=== PATIENT | female | born 1955 | race Caucasian/White ===

== ENCOUNTER 2017-12-14 13:38 | Emergency (ER) | payer BC ==
[2017-12-14 14:01] VITALS: BP 107/54
[2017-12-14] MEDS ORDERED: Ibuprofen TAB* 400 MG PO ONE (14:12)
--- NOTE | 2017-12-14 14:26 | RAD ---
Indication: Elbow injury. 4 views of left elbow demonstrates fracture through the olecranon process with distraction of the fracture fragments and marked soft tissue swelling at the elbow. IMPRESSION: Comminuted fracture through the olecranon with distraction of the fracture fragments.
--- NOTE | 2017-12-14 14:36 | UC ---
Upper Extremity HPI - HPI Summary HPI Summary: Complains of left elbow pain and swelling as/P mechanical fall today. Patient states he tripped and fell onto her left elbow on a concrete surface. Denies any loss of sensation or function distally. Denies head injury, any other pain or injury. Med hx = HTN, internal defib, chf, brain tumor. - History of Current Complaint Hx Obtained From: Patient Severity Initially: Moderate Severity Currently: Moderate Pain Intensity: 6 Pain Scale Used: 0-10 Numeric Character: Sharp, Aching, Throbbing Aggravating Factor(s): Movement Alleviating Factor(s): Nothing Associated Signs And Symptoms: Positive: Swelling. Negative: Weakness, Numbness /Tingling <Vishnu Pabon - Last Filed: 12/14/17 15:58> <Emily Cloud - Last Filed: 12/15/17 19:36> - History of Current Complaint Chief Complaint: UCUpperExtremity Stated Complaint: LEFT ELBOW INJURY Time Seen by Provider: 12/14/17 14:05 - Allergies/Home Medications Allergies/Adverse Reactions: Allergies Allergy/AdvReac Type Severity Reaction Status Date / Time No Known Allergies Allergy Verified 12/14/17 14:01 Home Medications: Home Medications PARoxetine HCL TAB* [Paxil TAB*] 40 mg DAILY 12/14/17 [History Confirmed ] PMH/Surg Hx/FS Hx/Imm Hx - Surgical History Surgical History: Yes Surgery Procedure, Year, and Place: removal of benign brain tumor 06/12/2015. defibrillator. Functional blepharoplasty - Family History Known Family History: Positive: Other - cancer - Social History Alcohol Use: Daily Alcohol Amount: glass of wine daily Substance Use Type: None Smoking Status (MU): Never Smoked Tobacco - Immunization History Most Recent Influenza Vaccination: NOT IN 2013 <Vishnu Pabon - Last Filed: 12/14/17 15:58> Review of Systems Constitutional: Negative Skin: Negative Eyes: Negative ENT: Negative Respiratory: Negative Cardiovascular: Negative Gastrointestinal: Negative Genitourinary: Negative Motor: Negative Neurovascular: Negative Musculoskeletal: Arthralgia, Decreased ROM, Edema Neurological: Negative Psychological: Negative Is Patient Immunocompromised?: No All Other Systems Reviewed And Are Negative: Yes <Vishnu Pabon - Last Filed: 12/14/17 15:58> Physical Exam - Summary Physical Exam Summary: Swelling to left elbow. Full extension intact. Pain with flexion past 90. No erythema, ecchymosis, lacerations or abrasions noted to left elbow. Full active flexion and extension intact at the left wrist and all left fingers without pain. Sensation intact on all fingers. Triage Information Reviewed: Yes Appearance: Well-Appearing Vital Signs: Initial Vital Signs Temp 99.2 F 12/14/17 13:55 Pulse 63 12/14/17 13:55 Resp 16 12/14/17 13:55 BP 107/54 12/14/17 13:55 Pulse Ox 100 12/14/17 13:55 Eyes: Positive: Conjunctiva Clear Neck exam: Normal Respiratory Exam: Normal Cardiovascular Exam: Normal Abdominal Exam: Normal Musculoskeletal Exam: Normal Neurological Exam: Normal Psychological Exam: Normal Skin Exam: Normal <Vishnu Pabon - Last Filed: 12/14/17 15:58> Vital Signs: Initial Vital Signs Temp 99.2 F 12/14/17 13:55 Pulse 63 12/14/17 13:55 Resp 16 12/14/17 13:55 BP 107/54 12/14/17 13:55 Pulse Ox 100 12/14/17 13:55 <Emily Cloud - Last Filed: 12/15/17 19:36> Upper Extremity Course/Dx - Course Course Of Treatment: Complains of left elbow pain and swelling as/P mechanical fall today. Patient states he tripped and fell onto her left elbow on a concrete surface. Denies any loss of sensation or function distally. Denies head injury, any other pain or injury. Med hx = HTN, internal defib, chf, brain tumor. Swelling to left elbow. Full extension intact. Pain with flexion past 90. No erythema, ecchymosis, lacerations or abrasions noted to left elbow. Full active flexion and extension intact at the left wrist and hand without pain. PMS intact distally. elbow xray: olecrannon fx with distraction of fragments. Posterior long-arm splint placed here. RX for hydrocodone 5mg x 8 tabs. Follow-up with Dr. Saleh orthopedics. - Differential Dx/Diagnosis Provider Diagnoses: olecrannon fracture <Vishnu Pabon - Last Filed: 12/14/17 15:58> Discharge - Sign-Out/Discharge Documenting (check all that apply): Discharge/Admit/Transfer - Billing Disposition and Condition Condition: STABLE Disposition: Home <CmVishnu - Last Filed: 12/14/17 15:58> - Billing Disposition and Condition Condition: STABLE Disposition: Home <Emily Cloud - Last Filed: 12/15/17 19:36> - Discharge Plan Condition: Stable Disposition: HOME Prescriptions: HYDROcodone/ACETAMIN 5-325 MG* [[place] 5-325 TAB*] 1 tab PO Q6H PRN 2 Days #8 tab MDD 4 tabs PRN Reason: Pain Patient Education Materials: Elbow Fracture (ED) Referrals: Adrián Cronin MD [Primary Care Provider] - Timothy Saleh MD [Medical Doctor] - Additional Instructions: Call Orthopedics Dr Saleh friday for follow up appt. Attestation Statement User Type: Provider - I was available for consult. This patient was seen by the EDUARDO. The patient was not presented to, seen by, or examined by me. -Ljj <Emily Cloud - Last Filed: 12/15/17 19:36>
[2017-12-14] MEDS ORDERED: HYDROcodone/ACETAMIN 5-325 MG* 1 TAB PO ONE (15:13)
== END 2017-12-14 15:38 | disposition home or self-care (01) ==
LOC: UCCORT 13:38
DX: S52.022A Displaced fracture of olecranon process without intraarticular extension of left ulna, initial encounter for closed fracture (principal); W01.0XXA Fall on same level from slipping, tripping and stumbling without subsequent striking against object, initial encounter; Y93.9 Activity, unspecified; Y92.9 Unspecified place or not applicable; I10 Essential (primary) hypertension; Z95.811 Presence of heart assist device
CPT/HCPCS: 99212; A9270-GY; G0463

== ENCOUNTER → 2017-12-18 14:57 | Day surgery (SDC) | payer BC ==
[~2017-12-18 14:57] MED LIST: Acetaminophen TAB* 325 MG PO PRN; Bupivacaine 0.5% PF 10 ML VIAL INJ ONE; Bupivacaine 0.5% W/EPI SDV* 10 ML VIAL INJ ONE; Dexamethasone IV* 4 MG/ML 1 ML (4 MG) ONE; EPHEDrine (Pressors)* 50 MG/ML VIAL ONE; HYDROmorphone INJ* 0.5 MG/0.5 ML SYRINGE IV PRN; Lidocaine 2% PF * 5 ML VIAL ONE; Metoclopramide IV* 5 MG/ML 2 ML VIAL IV PRN; Midazolam* 1 MG/ML 2 ML VIAL (2 MG) ONE; Naloxone* 0.4 MG/ML 1 ML VIAL IV PRN; Ondansetron INJ* 2 MG/ML VIAL ONE; Propofol* 10 MG/ML 20 ML BTL IV PUSH ONE; VASOPRESSIN 20 UNITS/ML 1 ML VIAL ONE; ceFAZolin 2 GM PREMIX (*) 2 GM/50 ML BAG IVPB ONE; fentaNYL* 50 MCG/ML 2 ML VIAL (100 MCG VIAL) IV PRN; fentaNYL* 50 MCG/ML 2 ML VIAL (100 MCG VIAL) ONE
[2017-12-18 21:41] VITALS: BP 99/49
--- NOTE | 2017-12-18 21:59 | RAD ---
CPT II Codes: G9500 INDICATION: Fractured elbow TECHNIQUE: Intraoperative fluoroscopy was provided during ORIF. FINDINGS: 3 spot films depict plate and screw fixator applied to the olecranon of the ulna. Fluoroscopy time: 12.8 seconds IMPRESSION: As above.
--- NOTE | 2017-12-19 12:00 | OP ---
DATE OF OPERATION: 12/18/17 - [facility] DATE OF : 51 SURGEON: Bhaskar Trejo MD OCCUPATIONAL HEALTH NURSE: DIPTI Spencer. An clinical physician assistant was needed for the entirety of the procedure to aid in positioning of the arm and retraction. ANESTHESIOLOGIST: Zoila Pitts MD ANESTHESIA: General plus supraclavicular block. PRE-OP DIAGNOSIS: Left displaced, comminuted, and impacted intra-articular distal radius fracture. POST-OP DIAGNOSIS: Left displaced, comminuted, and impacted intra-articular distal radius fracture. OPERATIVE PROCEDURE: Open reduction internal fixation of left intra-articular, impacted, and comminuted olecranon fracture. INDICATIONS: Tere had a fall. She fractured the olecranon; the joint surface was malaligned and impacted and comminuted. I talked to her about treatment options. I recommended surgery. We yet talked about risks of stiffness, ulnar nerve injury, nonunion, malunion, infection. She wished to proceed with surgery. ESTIMATED BLOOD LOSS: 10 mL. COMPLICATIONS: None. FINDINGS: See above and below. DESCRIPTION OF PROCEDURE: Tere was seen in the preoperative holding area. The correct site, side, and procedure were identified. We came back to the operating room where the anesthesia was induced. She was positioned in the lateral decubitus position. The arm was prepped and draped in the usual fashion after a thorough pre-scrub. A time-out was performed. The arm was positioned on a well-padded arm vivar. I began by making a posterior incision down the midline. Dissection was carried down and full-thickness flaps were raised off the fascia and triceps tendon. The fascia hematoma was suctioned out. The fascia was split and subperiosteal dissection revealed the ulnar shaft. I cleaned up the released periosteum off the fracture edges. On the radial aspect, there was a comminuted piece of articular surface involving a portion of articular surface that articulated with the capitellum; this was rotated. Adjacent to this, there was a central impacted piece. I took an osteotome and I disimpacted the impacted piece until the joint surface was flush. I then placed a K-wire from medial to lateral to that impacted piece of bone up into place. The radial-sided piece was derotated and reduced and then pinned into place as well with a second 0.045 K-wire. Care was taken to not injure the ulnar nerve while placing the K-wires. After I had build back the articular surface on the distal fragment, I made sure there was no soft tissue that could be interposed. Again, I had the fracture which was nicely cleaned. I performed the reduction and once I had it anatomically reduced, I clamped it into place using a [id number] clamp. I had placed a drill hole in the distal radial shaft to enable placement of the clamp. Once I had it reduced, I made a split in the terminal extensor tendon. I released just enough triceps tendon to place my [employer]ynthes olecranon plate. The plate was positioned and pinned into the place with a couple of 0.016 K-wires. One screw was placed in the oblong hole, I then drilled in place a metaphyseal screw from the proximal plate down exiting out the anterior cortical surface of the coronoid process. This compressed very nicely. I did loosen the oblong screw as I was compressing and this provided excellent compression across an anatomically reduced fracture. I then drilled in place a variable angle locking screw again in the subchondral home run position. I placed a third locking screw, unicortical locking screw, proximally. I then placed a second 3.5 cortical screw proximally. I switched out my metaphyseal screw for a locking screw. I then placed a couple of more metaphyseal screws in the distal portion of the plate. At this point, the reduction was anatomic. It was very nicely compressed. The alignment and plate position and screw lengths had all been confirmed on fluoroscopy. The K- wires had all been removed as they no longer became necessary for provisional fixation. The wound and plate were copiously irrigated. The split in the triceps tendon was repaired with 0 Vicryl suture. The retinacula were repaired with the 0 Vicryl suture. The periosteum and fascial flap was closed over the plate with 2-0 Vicryl suture until the plate was covered in its entirety. The skin was then closed with desmond. I infiltrated a little bit more Marcaine around the operative site. The wound was dressed with Xeroform, 4x4s, sterile Webril, and then a long arm splint with a lateral buttress was applied holding the arm in about 20 to 30 degrees of flexion. Tourniquet was deflated. The hand pinked up immediately. She was woken up and taken to the recovery room in stable condition. [id number]/[facility] #: [id number] FABIOLA
== END | disposition home or self-care (01) ==
LOC: OR 14:57
PROVIDERS: ATTEND Orthopaedic Surgery Hand Surgery
DX: S52.032A Displaced fracture of olecranon process with intraarticular extension of left ulna, initial encounter for closed fracture (principal); G89.18 Other acute postprocedural pain; I50.1 Left ventricular failure, unspecified; Z95.810 Presence of automatic (implantable) cardiac defibrillator; F41.8 Other specified anxiety disorders; D64.9 Anemia, unspecified; Z85.828 Personal history of other malignant neoplasm of skin; Z85.841 Personal history of malignant neoplasm of brain; W19.XXXA Unspecified fall, initial encounter; Y92.9 Unspecified place or not applicable
CPT/HCPCS: 76000; C1713; C1776; J0690; J1100; J2250; J2405; J2704; J3010

== ENCOUNTER → 2018-06-22 08:08 | Day surgery (SDC) | payer MEDICARE ==
[~2018-06-22 08:08] MED LIST changes: -Acetaminophen TAB* 325 MG PO PRN; +Buffered Lidocaine 0.9% SYRIN* 5 ML/SYR SYRINGE INTRADERM ONE; +Bupivacaine 0.25% W/EPI* 10 ML SDV ONE; -Bupivacaine 0.5% PF 10 ML VIAL INJ ONE; -Bupivacaine 0.5% W/EPI SDV* 10 ML VIAL INJ ONE; +Dexamethasone IV* 4 MG/ML 1 ML (4 MG) IV SLOW PU ONE; +DiMENhydriNATE IV* 50 MG/ML VIAL IV PUSH PRN; +Famotidine IV* 10 MG/ML 2 ML (20 mg) IV ONE; +Famotidine IV* 10 MG/ML 2 ML (20 mg) ONE; +Glycopyrrolate IV* 0.2 MG/ML 1 ML VIAL ONE; +HYDROcodone/ACETAMIN 5-325 MG* 1 TAB PO PRN; -HYDROmorphone INJ* 0.5 MG/0.5 ML SYRINGE IV PRN; +Lactated Ringers 1000 ML Bag* 1,000 ML IV SCH; -Metoclopramide IV* 5 MG/ML 2 ML VIAL IV PRN; +Phenylephrine INJ* 10 MG/ML 1 ML VIAL (10 MG) ONE; -Propofol* 10 MG/ML 20 ML BTL IV PUSH ONE; +Propofol* 10 MG/ML 20 ML BTL ONE; +ROPIVACAINE 5 MG/ML 30 ML BTL (0.5%) ONE; +Rocuronium* 10 MG/ML VIAL ONE; -VASOPRESSIN 20 UNITS/ML 1 ML VIAL ONE; -ceFAZolin 2 GM PREMIX (*) 2 GM/50 ML BAG IVPB ONE; +ceFAZolin 2 GM PREMIX in ORs 2 GM/50 ML BAG IVPB ONE; +oxyCODONE/Acetamin 5/325 MG* TAB PO PRN
[2018-06-22 17:41] VITALS: BP 113/54
--- NOTE | 2018-06-23 00:29 | OP ---
DATE OF OPERATION: 06/22/18 - [facility] DATE OF : 51 SURGEON: Bhaskar Trejo MD JIG AND FIXTURE BUILDER: DIPTI Spencer. An starch treating assistant was needed for the entirety of the procedure to aid in positioning of the arm and retraction. ANESTHESIOLOGIST: Dr. Valencia. ANESTHESIA: General plus peripheral nerve block. PRE-OP DIAGNOSIS: Left elbow olecranon nonunion, status post open reduction internal fixation of the left olecranon with escape of the proximal fragment. POST-OP DIAGNOSIS: Left elbow olecranon nonunion, status post open reduction internal fixation of the left olecranon with escape of the proximal fragment. OPERATIVE PROCEDURE: 1. Removal of hardware, left elbow. 2. Excision of nonunion fragment and advancement and repair of the triceps tendon. ESTIMATED BLOOD LOSS: 2 mL. COMPLICATIONS: None. FINDINGS: See and below. INDICATIONS: Tere underwent ORIF of the left olecranon several months ago. She had escape of the proximal fragment postoperatively and she had a mechanical block to extension. Additionally, she had increased haloing around the proximal hardware and was concerned for screw irritation of the joint from the proximal screw. We had talked about risks and benefits. She had wanted to proceed with the procedure. I told her that if the piece was big enough, then I felt I could get good fixation that I would try to repair the nonunion. Otherwise, I would excise the fragment and advance the triceps tendon. DESCRIPTION OF PROCEDURE: Tere was seen in the preoperative holding area. The correct site, side, and procedure were identified. She had a block performed, and then we came back to the operating room, where she underwent general anesthesia and then she was positioned in the lateral decubitus position using the beanbag with the arm draped over an arm vivar. A time-out was performed. The arm was exsanguinated with the Esmarch and the tourniquet inflated to 250 mmHg. I reopened her prior incision and this was extended proximally. Dissection was carried down and full-thickness flaps were raised off of the fascia of the triceps tendon proximally and off the periosteum and fascia distally. The plate was exposed by longitudinally incising the soft tissue over the plate. The screw holes were all cleaned up and then I first removed the proximal screws followed by the distal cortical 3.5 mm screws. The plate was then removed uneventfully. The soft tissue where each of the screw holes had been was excised to nice flesh smooth surface. I then turned my attention to the nonunion. There was quite a bit of fibrous tissue between the 2 bony fragments. There was definitely no osseous union. I went ahead and debrided back all of that fibrous tissue and mobilized the nonunion. Ultimately, the piece of olecranon was small and I did not think I would get very good fixation with, again that would be extremely high risk for proximal cut out and loss of fixation again, so I decided to excise the fragment and advance the triceps tendon. The fragment was excised and handed off. I then whipstitched two #2 FiberWire sutures into the triceps tendon, ultimately whipstitching up about 7 to 10 cm. I then placed 3 parallel 2.0 mm bone tunnels through the bed of the cancellous bone exiting out the dorsal cortex. I passed 2 suture tails through the middle drill tunnel and 1 suture tail through the medial and lateral bone tunnels. Tension was applied to one set of sutures as the first set of sutures was tied off providing excellent tendon to bone opposition. The second set of sutures was then tied off. Each set of sutures were then tied to each other. I then took the elbow through a full flexion arch and there was excellent tendon to bone opposition with no gapping. I then augmented the repair with some peripheral 0 Vicryl sutures. The periosteum over the bone distally was repaired with Vicryl. The subcutaneous tissue was reapproximated with 3-0 Vicryl. The skin was closed with 4-0 nylon suture. Little bit of additional Marcaine was infiltrated just around the incision site. The wound had been copiously irrigated. Xeroform, 4x4s, sterile Webril, and a long-arm splint just from the shoulder down to the wrist was applied, holding the elbow in about 30 degrees of flexion. This was a volar splint. Tourniquet was deflated. The hand pinked up immediately. She was taken to the recovery room in stable condition. [id number]/[facility] #: [id number] MTDRyder
== END | disposition home or self-care (01) ==
LOC: OR 08:08
PROVIDERS: ATTEND Orthopaedic Surgery Hand Surgery
DX: S52.032K Displaced fracture of olecranon process with intraarticular extension of left ulna, subsequent encounter for closed fracture with nonunion (principal); X58.XXXD Exposure to other specified factors, subsequent encounter; Y92.9 Unspecified place or not applicable; T84.84XA Pain due to internal orthopedic prosthetic devices, implants and grafts, initial encounter; Y83.1 Surgical operation with implant of artificial internal device as the cause of abnormal reaction of the patient, or of later complication, without mention of misadventure at the time of the procedure; I47.1 Supraventricular tachycardia; Z95.810 Presence of automatic (implantable) cardiac defibrillator; G89.18 Other acute postprocedural pain; E78.5 Hyperlipidemia, unspecified; G47.33 Obstructive sleep apnea (adult) (pediatric); F41.8 Other specified anxiety disorders
CPT/HCPCS: 76000; 88300; 88304; 88311; J0690; J1100; J2250; J2405; J2704; J2795; J3010

== ENCOUNTER 2018-11-28 07:45 | Emergency (ER) | payer MEDICARE ==
[2018-11-28 08:01] VITALS: BP 121/61
--- NOTE | 2018-11-28 08:13 | UC ---
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 Hurts to bend, but not as much to bear weight. Did elevate last night. Mild swelling. " -has some pain w/ flexion only. mild pain w/ bearing weight -no bruising or erythema -no locking or giving out -no h/o left knee problems or surgery -had seveer gaston b/l thighs d/t hot water last winter and left elbow frx w/ repair last . recovered well for both - History of Current Complaint Chief Complaint: UCLowerExtremity Stated Complaint: LT KNEE INJURY Time Seen by Provider: 11/28/18 07:49 Pain Intensity: 3 - Allergies/Home Medications Allergies/Adverse Reactions: Allergies Allergy/AdvReac Type Severity Reaction Status Date / Time No Known Allergies Allergy Verified 11/28/18 07:54 PMH/Surg Hx/FS Hx/Imm Hx Previously Healthy: Yes Cardiovascular History: Pacemaker/ICD - Surgical History Surgical History: Yes Surgery Procedure, Year, and Place: removal of benign brain tumor 06/12/2015 [facility]. [employer] DEV[employer] ICD/PACEMAKER- DR LUIS E ORTIZ. BLEPHAROPLASTY 2016 [place]. ORIF LEFT ELBOW 12/18/2017 [facility] - Family History Known Family History: Positive: Other - cancer - Social History Alcohol Use: Daily Alcohol Amount: 1 GLASS OF WINE DAILY Substance Use Type: None Smoking Status (MU): Never Smoked Tobacco Have You Smoked in the Last Year: No - Immunization History Most Recent Influenza Vaccination: NOT IN 2013 Review of Systems All Other Systems Reviewed And Are Negative: Yes Constitutional: Positive: Negative Skin: Positive: Negative Eyes: Positive: Negative ENT: Positive: Negative Respiratory: Positive: Negative Cardiovascular: Positive: Negative Gastrointestinal: Positive: Negative Genitourinary: Positive: Negative Motor: Positive: Decreased ROM Neurovascular: Positive: Negative Musculoskeletal: Positive: Decreased ROM Neurological: Positive: Negative Psychological: Positive: Negative Is Patient Immunocompromised?: No Physical Exam Triage Information Reviewed: Yes Appearance: Well-Appearing, No Pain Distress, Well-Nourished - very pleasant Vital Signs: Initial Vital Signs Temp 99.3 F 11/28/18 07:54 Pulse 72 11/28/18 07:54 Resp 15 11/28/18 07:54 BP 121/61 11/28/18 07:54 Pulse Ox 100 06/15/19 07:54 Vital Signs Reviewed: Yes Eye Exam: Normal ENT Exam: Normal Respiratory Exam: Normal Cardiovascular Exam: Normal Abdominal Exam: Normal Musculoskeletal: Positive: Other: - left knee - mild medial swelling, no bruising or erythema. no v/v laxity. neg lachmans, neg A/P drawer. mild-mod limitation w/ flexion. CR brisk, sensation intact Neurological Exam: Normal Psychological Exam: Normal Skin Exam: Normal Knee Pain Course/Dx - Course Course Of Treatment: Left knee xray - non displaced transverse fracture. -knee immobilizer and walker -nayla eaton like to see [facility] in [place] as she has had many family members see them. - Differential Dx/Diagnosis Differential Diagnosis/HQI/PQRI: Fracture (Closed), Sprain, Strain Provider Diagnosis: Left patella fracture Discharge - Sign-Out/Discharge Documenting (check all that apply): Patient Departure All imaging exams completed and their final reports reviewed: Yes - Discharge Plan Condition: Stable Disposition: HOME Patient Education Materials: Patellar Fracture (ED) Referrals: Adrián Cronin MD [Primary Care Provider] - Candace TELLEZ,Car Morales [Medical Doctor] - 3 Days Additional Instructions: -Make sure you are not bearing any weight. Keep icing. Call ortho on Friday fto be seen. - Billing Disposition and Condition Condition: STABLE
== END 2018-11-28 09:08 | disposition home or self-care (01) ==
LOC: UCCORT 07:45
DX: S82.002A Unspecified fracture of left patella, initial encounter for closed fracture (principal); W10.9XXA Fall (on) (from) unspecified stairs and steps, initial encounter; Y93.01 Activity, walking, marching and hiking; Y92.9 Unspecified place or not applicable; Z95.0 Presence of cardiac pacemaker
CPT/HCPCS: 99213; G0463